=== PATIENT | female | born 1995 | race Caucasian/White ===

== ENCOUNTER 2016-10-14 10:57 | Emergency (ER) | payer BC ==
[~2016-10-14] VITALS: Ht 177.8 cm; Wt 56.2 kg
[2016-10-14 11:02] VITALS: BP 124/79; TEMP 37.3; O2SAT 96; Ht 177.8 cm; Wt 56.2 kg
--- NOTE | 2016-10-14 11:39 | EMERGENCY ROOM VISIT NOTE ---
History Report prepared by Gurpreet: Sonia Perez Under the Supervision of: Dr. Ran Ma D.O. First contact with patient: 11:13 Chief Complaint: CHEST PAIN Stated Complaint: CHEST PRESSURE, FAINT FEELING Nursing Triage Summary: Pt states, "I had heart ablation done two years ago. I still get palpations some times. I was class this morning and got pressure and felt fluttering and felt like I was going to pass out." Hx of SVT. History of Present Illness The patient is a 21 year old female who presents to the Emergency Room with complaints of sudden palpitations that began while sitting in class today. She currently rates her discomfort as 4/10 in severity. The patient states that she has a history of SVT and notes that she had a cardiac ablation done in January of 2015. She states that since then, she has had some minor palpations intermittently, noting mostly at night with lying down. The patient states that prior to her ablation she would have palpitations lasting 5-10 minutes, but notes that since her ablation her palpations last approximately 10 seconds. She states that today she developed the palpitations while in class around 0920, and then felt syncopal. The patient states that she felt that she was in SVT for nearly two hours today. The patient states that she has been experiencing chest pressure since the episode. The patient denies ever having any medications in the past for her palpations or SVTs. The patient states that she had a stomach virus last week, but denies any other recent illness. She reports normal appetite and fluid intake. Source of History: patient Onset: today Position: other (global) Symptom Intensity: 4/10 Quality: other (palpitations) Timing: other (sudden) Associated Symptoms: + chest pain (pressure) Note: Associated Symptoms: near syncopal Review of Systems See HPI for pertinent positives & negatives. A total of 10 systems reviewed and were otherwise negative. Past Medical & Surgical Medical Problems: (1) SVT (supraventricular tachycardia) Surgical Problems: (1) H/O cardiac radiofrequency ablation Family History No pertinent family history stated. Social History Smoking Status: Never Smoker Marital Status: single Occupation Status: [employer] student Physical Exam Vital Signs Date Time Temp Pulse Resp B/P Pulse Ox O2 Delivery O2 Flow Rate FiO2 10/14/16 11:02 37.3 168 18 124/79 96 Room Air Physical Exam CONSTITUTIONAL/VITAL SIGNS: Reviewed / noted above. GENERAL: Non-toxic in appearance. INTEGUMENTARY: Warm, dry, and [place]. HEAD: Normocephalic. EYES: without scleral icterus or trauma. ENT/OROPHARYNX: clear and moist. LYMPHADENOPATHY/NECK: Is supple without lymphadenopathy or meningismus. RESPIRATORY: Lungs clear and equal. CARDIOVASCULAR: Regular rate and rhythm. GI/ABDOMEN: Soft and nontender. No organomegaly or pulsatile mass. No rebound or guarding. Normal bowel sounds. EXTREMITIES: Warm and well perfused. BACK: No CVA tenderness. NEUROLOGICAL: Intact without focal deficits. PSYCHIATRIC: normal affect. MUSCULOSKELETAL: Normally developed with good muscle tone. Medical Decision & Procedures ECG Indication: chest pain, palpitations, tachycardia Rate (beats per minute): 69 Rhythm: normal sinus Findings: no acute ischemic change, no ectopy ED Course 1114: Previous medical records were reviewed. The patient was evaluated in room C6. A complete history and physical examination was performed. I discussed all the exam findings with her and I discussed the treatment plan. She verbalized complete understanding and agreement. She is ready to go home shortly. Medical Decision the differential was considered includes acute myocardial infarction, acute coronary syndrome, myocarditis, pericarditis, pericardial effusions /tamponad, esophageal perforation, thoracic aortic dissection, pulmonary embolism, pneumonia, pneumothorax, pancreatitis, shingles, acute cholecystitis, perforated abdominal viscus. This is a 21-year-old female who presents to the ED with a chief complaint of palpitations and lightheadedness. The patient has a history of SVT. She had an ablation in the past. She has periodic symptoms of SVT that usually last less than a few minutes. Today she was at class and began having some chest palpitations as well as lightheadedness and came to the ED for evaluation. The symptoms lasted for about 1 hour and 40 minutes. In triage she had a heart rate of 168. By the time she got back and was placed on a monitor, her EKG showed a normal sinus rhythm at a normal rate. As well as EKG shows a normal sinus rhythm with a rate around 70. The patient states that her symptoms have improved. She did not want any testing at this time. She has been on a recent event monitor a few months ago. This has shown that she has periodic SVT. She is currently not taking medication for SVT. The patient was advised to contact her hip hop dancer to advise him of today's events. She will return for any concerns. She is felt to be stable for discharge at this time. Impression Primary Impression: SVT (supraventricular tachycardia) Scribe Attestation The scribe's documentation has been prepared under my direction and personally reviewed by me in its entirety. I confirm that the note above accurately reflects all work, treatment, procedures, and medical decision making performed by me. Departure Information Dispostion Home / Self-Care Referrals No Doctor, Assigned (PCP) Patient Instructions My [facility] Additional Instructions Follow-up/call with your hip hop dancer to let him know of today's events. Return for any concerns.
[2016-10-14 11:45] VITALS: PULSE 82
== END 2016-10-14 11:50 | disposition home or self-care (01) ==
LOC: C.EDB 11:00 → C.EDC 11:50
DX: I47.1 Supraventricular tachycardia (principal)